=== PATIENT | male | born 1980 | race Caucasian/White ===

== ENCOUNTER 2021-02-28 13:56 | Emergency (ER) | payer OTHER, SELFPAY ==
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
[2021-02-28 14:33] VITALS: BP 107/80; PULSE 77; RESP 16; TEMP 36.9; O2SAT 98
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
--- NOTE | 2021-02-28 15:33 | PC.NURSE ---
Assumed care of pt.
[2021-02-28] MEDS: KETOROLAC (*BKC) 60 MG/2 ML VIAL IM (15:43)
--- NOTE | 2021-02-28 15:44 | PC.NURSE ---
Right arm sling applied per tech. Nicki Pt tolerated well. PMS intact.
[2021-02-28 15:45] VITALS: BP 106/76; PULSE 76; RESP 16; O2SAT 98
== END 2021-02-28 15:50 | disposition home or self-care (01) ==
PROVIDERS: Emergency Provider Emergency Medicine
DX: S46.911A Strain of unspecified muscle, fascia and tendon at shoulder and upper arm level, right arm, initial encounter (principal); V89.2XXA Person injured in unspecified motor-vehicle accident, traffic, initial encounter
CPT/HCPCS: 73030; 96372; 99283; A4565; J1885